=== PATIENT | female | born 1960 | race Caucasian/White ===

== ENCOUNTER 2017-04-19 08:28 | Emergency (ER) | payer MEDICAID ==
[~2017-04-19] VITALS: Ht 160 cm; Wt 52.2 kg
[~2017-04-19 08:28] MED LIST: ERGO1TAB10 PO
[2017-04-19] MEDS ORDERED: predniSONE 20 MG TABLET PO ONE (08:45)
[2017-04-19] MEDS ORDERED: KETOROLAC TROMETHAMINE 30 MG INJ IM ONE (08:45)
[2017-04-19] MEDS ORDERED: METOCLOPRAMIDE HCL 10 MG TABLET PO ONE (08:45)
[2017-04-19] MEDS ORDERED: KETOROLAC TROMETHAMINE 30 MG INJ ONE (08:56)
[2017-04-19] MEDS ORDERED: METOCLOPRAMIDE HCL 10 MG TABLET ONE (08:57)
[2017-04-19] MEDS ORDERED: predniSONE 20 MG TABLET ONE (08:57)
[2017-04-19 09:05] VITALS: BP 112/78
== END 2017-04-19 09:06 | disposition home or self-care (01) ==
LOC: ER 08:28
DX: G43.909 Migraine, unspecified, not intractable, without status migrainosus (principal); J06.9 Acute upper respiratory infection, unspecified; R09.82 Postnasal drip; K21.9 Gastro-esophageal reflux disease without esophagitis
CPT/HCPCS: 96372; 99283; A4663; J1885; J7512; J8597

== ENCOUNTER 2018-11-10 02:34 | Emergency (ER) | payer MEDICAID ==
[~2018-11-10] VITALS: Ht 160 cm; Wt 49.9 kg
[2018-11-10] MEDS ORDERED: KETOROLAC TROMETHAMINE 60 MG INJ IM ONE ×2 (03:00→03:24)
[2018-11-10] MEDS ORDERED: ONDANSETRON 4 MG/2 ML VIAL IM ONE (03:00)
--- NOTE | 2018-11-10 03:10 | NUR ---
pt stated she has a migraine headache and feels nauseated overall appearances fair no acute distress noted
[2018-11-10] MEDS ORDERED: ONDANSETRON 4 MG/2 ML VIAL ONE (03:24)
--- NOTE | 2018-11-10 03:27 | NUR ---
was medicated with toradol and zofran denies allergies medication teaching given with effect pt was discharge to home discharge instruction given enc pt not to drive stated she felt better
[2018-11-10 03:39] VITALS: BP 122/66
== END 2018-11-10 03:40 | disposition home or self-care (01) ==
LOC: ER 02:38
DX: G43.909 Migraine, unspecified, not intractable, without status migrainosus (principal); Z79.899 Other long term (current) drug therapy
CPT/HCPCS: 96372 ×2; 99283; J1885; J2405; A4663

== ENCOUNTER 2018-12-08 17:42 | Emergency (ER) | payer MEDICAID ==
[~2018-12-08] VITALS: Ht 157.5 cm; Wt 49.0 kg
--- NOTE | 2018-12-08 17:58 | NUR ---
Dr gonzalez at the bedside for MSE.
[2018-12-08] MEDS ORDERED: ASPIRIN 325 MG TABLET ONE (18:15)
[2018-12-08] MEDS ORDERED: ASPIRIN 325 MG TABLET PO ONE (18:15)
[2018-12-08] MEDS ORDERED: NITROGLYCERIN 0.4 MG/TAB BOTTLE SL ONE ×2 (18:15)
--- NOTE | 2018-12-08 18:16 | NUR ---
Per Dr Leonard goss, d/c 2nd [facility], Due to Pt's low BP.
[2018-12-08 18:26] LABS: BASOPHILS # (AUTO) 0.1 K/uL (0.0-8.0); BASOPHILS % (AUTO) 1.3 % (0.0-2.0); EOSINOPHILS # (AUTO) 0.1 K/uL (0.0-0.7); EOSINOPHILS % (AUTO) 1.4 % (0.0-7.0); HEMATOCRIT 37.7 % (31.2-41.9); HEMOGLOBIN 12.4 g/dL (10.9-14.3); LYMPHOCYTES # (AUTO) 2.5 K/uL (20.0-40.0); MEAN CORPUSCULAR HEMOGLOBIN 30.7 uug (24.7-32.8); MEAN CORPUSCULAR HGB CONC 33 g/dL (32.3-35.6); MEAN CORPUSCULAR VOLUME 93.1 fL (75.5-95.3); MONOCYTES # (AUTO) 0.6 K/uL (2.0-10.0); MONOCYTES % (AUTO) 8.1 % (0.0-11.0); NEUTROPHILS # (AUTO) 3.9 K/uL (1.8-8.9); NEUTROPHILS % (AUTO) 54.2 % (38.5-71.5); PLATELET COUNT (AUTO) 321 K/uL (179-408); RED BLOOD CELL COUNT(AUTO) 4.05 MIL/uL (3.63-4.92); WHITE BLOOD COUNT (AUTO) 7.2 K/uL (3.8-11.8)
[2018-12-08 18:37] LABS: CREATININE 0.9 mg/dL (0.6-1.3); POTASSIUM 3.9 mmol/L (3.5-5.1)
[2018-12-08 18:50] LABS: BILIRUBIN,DIRECT 0.1 mg/dL (0.0-0.2); BILIRUBIN,TOTAL 0.3 mg/dL (0.2-1.0); TOTAL PROTEIN, SERUM 7.4 g/dL (6.4-8.2)
--- NOTE | 2018-12-08 19:44 | NUR ---
Patient discharged to home in stable conditon. Written and verbal after care instructions given. Patient verbalizes understanding of instructions. Patient ambulated with stable gait.
[2018-12-08 19:46] VITALS: BP 106/76
== END 2018-12-08 19:47 | disposition home or self-care (01) ==
LOC: ER 17:42
DX: R07.2 Precordial pain (principal); G43.909 Migraine, unspecified, not intractable, without status migrainosus; Z79.899 Other long term (current) drug therapy
CPT/HCPCS: 36415; 70030-TC; 71045; 85025; 85730; 93005; A4663

== ENCOUNTER 2020-06-05 11:32 | Emergency (ER) | payer MEDICAID ==
[~2020-06-05] VITALS: Ht 165.1 cm; Wt 49.9 kg
--- NOTE | 2020-06-05 11:45 | NUR ---
Dr Valle at bedside for eval
--- NOTE | 2020-06-05 11:59 | NUR ---
DC, RX (INCLUDING ALL OXYCODONE PRECAUTIONS) GIVEN AND EXPLAINED TO PATIENT WHO STATES SHE UNDERSTANDS ALL INSTRUCTIONS
== END 2020-06-05 12:00 | disposition home or self-care (01) ==
LOC: ER 11:32
DX: K04.7 Periapical abscess without sinus (principal)
CPT/HCPCS: A4663

== ENCOUNTER 2020-07-09 19:25 | Emergency (ER) | payer MEDICAID ==
[~2020-07-09] VITALS: Ht 160 cm; Wt 54.4 kg
--- NOTE | 2020-07-09 19:40 | NUR ---
Patient refusing to let ERMD Dr. Valle assess rash on abdomen even with female nurse chapperone.
--- NOTE | 2020-07-09 19:50 | NUR ---
Patient discharged to home in stable condition. Written and verbal after care instructions given. Patient verbalizes understanding of instructions. Stressed follow up or return to ER for worsening s/s. Patient ambulated with steady gait.
[2020-07-09 19:52] VITALS: BP 118/78
== END 2020-07-09 19:52 | disposition home or self-care (01) ==
LOC: ER 19:25
DX: K08.89 Other specified disorders of teeth and supporting structures (principal); L01.00 Impetigo, unspecified; B37.2 Candidiasis of skin and nail; G43.909 Migraine, unspecified, not intractable, without status migrainosus
CPT/HCPCS: A4663

== ENCOUNTER 2020-07-13 10:57 | Emergency (ER) | payer MEDICAID ==
[~2020-07-13] VITALS: Ht 152.4 cm; Wt 59.9 kg
[2020-07-13] MEDS ORDERED: diphenhydrAMINE 50 MG CAPSULE PO ONE (11:30)
[2020-07-13] MEDS ORDERED: MALA59LO5 TP ×2 (11:30→11:35)
[2020-07-13] MEDS ORDERED: predniSONE 20 MG TABLET PO ONE (11:30)
[2020-07-13] MEDS ORDERED: predniSONE 50 MG TABLET ONE (11:32)
[2020-07-13] MEDS ORDERED: predniSONE 10 MG TABLET ONE (11:32)
[2020-07-13] MEDS ORDERED: diphenhydrAMINE 50 MG CAPSULE ONE (11:32)
[2020-07-13] MEDS ORDERED: DIPH25CA83 PO ×2 (11:36→11:37)
--- NOTE | 2020-07-13 11:58 | NUR ---
Patient discharged to home in stable condition. Written and verbal after care instructions given. Patient verbalizes understanding of instructions. Stressed follow up or return to ER for worsening s/s.
[2020-07-14] MEDS ORDERED: PERM60CR4 TP (14:51)
== END 2020-07-13 11:58 | disposition home or self-care (01) ==
LOC: ER 10:57
DX: R21 Rash and other nonspecific skin eruption (principal); K21.9 Gastro-esophageal reflux disease without esophagitis; G43.909 Migraine, unspecified, not intractable, without status migrainosus; F32.9 Major depressive disorder, single episode, unspecified; F41.9 Anxiety disorder, unspecified; Z79.899 Other long term (current) drug therapy
CPT/HCPCS: 99283; J7512 ×2; Q0163; A4663

== ENCOUNTER 2020-07-16 21:35 | Emergency (ER) | payer MEDICAID ==
[~2020-07-16] VITALS: Ht 162.6 cm; Wt 52.6 kg
[~2020-07-16 21:35] MED LIST changes: +DIPH25CA83 PO; +MALA59LO5 TP; +PERM60CR4 TP
--- NOTE | 2020-07-16 21:49 | NUR ---
Patient arrived at the ER with c/o generalized itchy, burning and dry rash.
--- NOTE | 2020-07-16 21:51 | NUR ---
Dr. Woodson at bedside for MSE.
--- NOTE | 2020-07-16 22:09 | NUR ---
Dr. Woodson examined patient skin with this nurse present for the entire encounter.
[2020-07-16] MEDS ORDERED: DIPH25CA83 PO (22:13)
[2020-07-16] MEDS ORDERED: DEXAMETHASONE SOD PHOSPHATE 4 MG INJ IM ONE (22:15)
[2020-07-16] MEDS ORDERED: diphenhydrAMINE 50 MG/1 ML VIAL IM ONE (22:15)
[2020-07-16] MEDS ORDERED: DEXAMETHASONE SOD PHOSPHATE 4 MG INJ ONE (22:18)
[2020-07-16] MEDS ORDERED: diphenhydrAMINE 50 MG/1 ML VIAL ONE (22:19)
[2020-07-16 22:32] VITALS: BP 125/79
--- NOTE | 2020-07-16 22:32 | NUR ---
Patient discharged to home in stable condition. Written and verbal after care instructions given. Patient verbalizes understanding of instructions. Stressed follow up or return to ER for worsening s/s. Pt ambulated out of the ER with steady gait. All belongings with pt.
== END 2020-07-16 22:33 | disposition home or self-care (01) ==
LOC: ER 21:35
DX: R21 Rash and other nonspecific skin eruption (principal); F41.9 Anxiety disorder, unspecified; F32.9 Major depressive disorder, single episode, unspecified; Z86.69 Personal history of other diseases of the nervous system and sense organs
CPT/HCPCS: 96372; 99283; J1200; A4663; J1100

== ENCOUNTER 2020-07-25 22:27 | Emergency (ER) | payer MEDICAID ==
[~2020-07-25] VITALS: Ht 157.5 cm; Wt 49.9 kg
--- NOTE | 2020-07-25 22:36 | NUR ---
MD DAHL in room to do MSE.
[2020-07-25] MEDS ORDERED: PERM60CR4 TP (22:42)
--- NOTE | 2020-07-25 22:55 | NUR ---
Patient c/o of discomfort around chest/abdomen area. MD Valle notifed. EKG done.
[2020-07-25] MEDS ORDERED: MAG HYDROX/AL HYDROX/SIMETH 30 ML LIQUID UDC PO ONE (23:00)
[2020-07-25] MEDS ORDERED: PANTOPRAZOLE SODIUM 40 MG TABLET.DR PO ONE ×2 (23:00→23:15)
[2020-07-25] MEDS ORDERED: DICYCLOMINE HCL LIQ 10 MG/5 ML UDC PO ONE (23:00)
[2020-07-25] MEDS ORDERED: MAG HYDROX/AL HYDROX/SIMETH 30 ML LIQUID UDC ONE (23:14)
[2020-07-25] MEDS ORDERED: DICYCLOMINE HCL LIQ 10 MG/5 ML UDC ONE (23:15)
[2020-07-25 23:20] VITALS: BP 125/75
--- NOTE | 2020-07-25 23:20 | NUR ---
Patient discharged to home in stable condition. Written and verbal after care instructions given. Patient verbalizes understanding of instructions. Stressed follow up or return to ER for worsening s/s. Patient ambulates without difficulty, Rx given, left with all belongings.
== END 2020-07-25 23:20 | disposition home or self-care (01) ==
LOC: ER 22:31
DX: B86 Scabies (principal)
CPT/HCPCS: 93005; A4663

== ENCOUNTER 2020-11-24 11:29 | Emergency (ER) | payer MEDICAID, OTHER ==
[~2020-11-24] VITALS: Ht 162.6 cm; Wt 59.9 kg
[2020-11-24] MEDS ORDERED: TRIA15CR2 TP (12:23)
[2020-11-24] MEDS ORDERED: HYDR-501 PO (12:23)
--- NOTE | 2020-11-24 12:29 | NUR ---
I received this patient for discharge. Patient discharged to home in stable condition with brisk steady gait. Written and verbal after care instructions given to patient. Patient verbalized understanding & compliance of instructions. Stressed follow up with her [employer] and primary doctor or return to ER for worsening s/s.
== END 2020-11-24 12:31 | disposition home or self-care (01) ==
LOC: ER 11:29
DX: L29.9 Pruritus, unspecified (principal); D22.5 Melanocytic nevi of trunk
CPT/HCPCS: A4663

== ENCOUNTER 2022-04-01 12:39 | Emergency (ER) | payer OTHER ==
[~2022-04-01] VITALS: Ht 157.5 cm; Wt 52.2 kg
[~2022-04-01 12:39] MED LIST changes: +HYDR-501 PO; +TRIA15CR2 TP
[2022-04-01] MEDS ORDERED: KETOROLAC TROMETHAMINE 15 MG INJ ONE (13:35)
[2022-04-01] MEDS ORDERED: diphenhydrAMINE 50 MG/1 ML VIAL ONE (13:35)
[2022-04-01] MEDS ORDERED: METOCLOPRAMIDE HCL 10 MG/2 ML VIAL ONE (13:35)
[2022-04-01] MEDS: diphenhydrAMINE 50 MG/1 ML VIAL IV ONE (14:35)
[2022-04-01] MEDS: IV NS 1000 ML 1,000 ML IV ONE (14:38)
[2022-04-01] MEDS: METOCLOPRAMIDE HCL 10 MG/2 ML VIAL IV ONE (14:38)
[2022-04-01] MEDS: KETOROLAC TROMETHAMINE 15 MG INJ IVP ONE (14:39)
[2022-04-01 15:05] LABS: *BILIRUBIN,URIN NEGATIVE (NEGATIVE); *BLOOD, URINE 1+ (NEGATIVE); *CLARITY,URINE CLEAR (CLEAR); *COLOR,URINE YELLOW (YELLOW); *KETONES,URINE NEGATIVE (NEGATIVE); *UROBILINOGEN,URINE 0.2 E.U./dl (NORMAL); LEUKOCYTE ESTERASE ,URINE NEGATIVE (NEGATIVE); NITRITE, URINE NEGATIVE (NEGATIVE); PH,URINE 5.5 (5.0-8.0); UGLUCOSE NEGATIVE (NEGATIVE)
[2022-04-01 15:17] LABS: BACTERIA,URINE NONE SEEN /HPF (NONE SEEN); RBC,URINE 0-3 /HPF (0-3); SQUAMOUS EPITHELIAL CELL,UR FEW /HPF (NONE SEEN); WBC,URINE 0-3 /HPF (0-3)
--- NOTE | 2022-04-01 16:19 | NUR ---
Pt arrived with c/o recurring headaches. Pt denies dizziness, n/v, episode of syncope. PERRLA, able to follow instructions, can be easily arouse by name, aox4. Seen by Dr. Shen for MSE.
[2022-04-01 16:23] VITALS: BP 129/71
== END 2022-04-01 15:45 | disposition home or self-care (01) ==
LOC: ER 12:41
DX: G44.209 Tension-type headache, unspecified, not intractable (principal); F43.9 Reaction to severe stress, unspecified
CPT/HCPCS: 93005; A4663; J1200; J1885; J2765; J7040

== ENCOUNTER 2022-04-12 15:07 | Emergency (ER) | payer OTHER ==
[~2022-04-12] VITALS: Ht 157.5 cm; Wt 52.2 kg
[2022-04-12] MEDS ORDERED: ACETAMINOPHEN ES 500 MG TABLET PO ONE (15:30)
[2022-04-12] MEDS ORDERED: diphenhydrAMINE 50 MG/1 ML VIAL IV ONE (15:30)
[2022-04-12] MEDS ORDERED: KETOROLAC TROMETHAMINE 15 MG INJ IVP ONE (15:30)
[2022-04-12] MEDS ORDERED: IV NORMAL SALINE 1000 ML BAG IV ONE (15:30)
[2022-04-12] MEDS ORDERED: METOCLOPRAMIDE HCL 10 MG/2 ML VIAL IV ONE (15:30)
[2022-04-12] MEDS ORDERED: ACETAMINOPHEN ES 500 MG TABLET ONE (15:31)
[2022-04-12] MEDS ORDERED: diphenhydrAMINE 50 MG/1 ML VIAL ONE (15:31)
[2022-04-12] MEDS ORDERED: METOCLOPRAMIDE HCL 10 MG/2 ML VIAL ONE (15:32)
[2022-04-12] MEDS ORDERED: KETOROLAC TROMETHAMINE 15 MG INJ ONE (15:32)
[2022-04-12 15:58] LABS: HEMATOCRIT 35.4 % (31.2-41.9); MEAN CORPUSCULAR HEMOGLOBIN 31.6 uug (24.7-32.8); MEAN CORPUSCULAR VOLUME 92.6 fL (75.5-95.3); PLATELET COUNT (AUTO) 334 K/uL (179-408)
[2022-04-12 16:06] LABS: CREATININE 0.5 mg/dL (0.6-1.3); POTASSIUM 3.5 mmol/L (3.5-5.1)
[2022-04-12 16:24] LABS: *BILIRUBIN,URIN NEGATIVE (NEGATIVE); *BLOOD, URINE 2+ (NEGATIVE); *CLARITY,URINE SLIGHTLY CLOUDY (CLEAR); *COLOR,URINE YELLOW (YELLOW); *KETONES,URINE NEGATIVE (NEGATIVE); *UROBILINOGEN,URINE 0.2 E.U./dl (NORMAL); LEUKOCYTE ESTERASE ,URINE NEGATIVE (NEGATIVE); NITRITE, URINE NEGATIVE (NEGATIVE); PH,URINE 7.5 (5.0-8.0); UGLUCOSE NEGATIVE (NEGATIVE)
[2022-04-12] MEDS ORDERED: IBUP-1955 PO (16:26)
[2022-04-12 18:12] VITALS: BP 100/81
[2022-04-12 18:18] LABS: BACTERIA,URINE NONE SEEN /HPF (NONE SEEN); SQUAMOUS EPITHELIAL CELL,UR FEW /HPF (NONE SEEN); URINE AMORPHOUS PHOSPHATES MODERATE /HPF; WBC,URINE 0-3 /HPF (0-3)
== END 2022-04-12 18:14 | disposition home or self-care (01) ==
LOC: ER 15:07
DX: G44.209 Tension-type headache, unspecified, not intractable (principal); F43.9 Reaction to severe stress, unspecified; R31.9 Hematuria, unspecified; F41.9 Anxiety disorder, unspecified; R42 Dizziness and giddiness
CPT/HCPCS: 99285; 96374; 70450; 96375; 96361; 80048; 81001; 82962; 84443; 85025; 36415; 93005; J1200; J1885; J2765; J7040; A9150

== ENCOUNTER 2024-09-09 19:02 | Emergency (ER) | payer OTHER ==
[~2024-09-09] VITALS: Ht 165.1 cm; Wt 49.9 kg
[~2024-09-09 19:02] MED LIST changes: +IBUP-1955 PO
[2024-09-09] MEDS ORDERED: AMOX500T2 PO (20:33)
[2024-09-09] MEDS ORDERED: BENZ-13 PO (20:33)
[2024-09-09] MEDS ORDERED: NIRM1TAB PO (20:46)
[2024-09-09 20:56] VITALS: BP 112/57; TEMP 98.5; O2SAT 99
== END 2024-09-09 20:56 | disposition home or self-care (01) ==
LOC: ER 19:19
DX: U07.1 COVID-19 (principal); R05.9 Cough, unspecified; F41.9 Anxiety disorder, unspecified; F32.A Depression, unspecified; G43.909 Migraine, unspecified, not intractable, without status migrainosus; Z79.899 Other long term (current) drug therapy; Z60.2 Problems related to living alone
CPT/HCPCS: A4606; A4663

== ENCOUNTER 2024-10-21 07:23 | Emergency (ER) | payer OTHER ==
[~2024-10-21] VITALS: Ht 160 cm; Wt 49.9 kg
[~2024-10-21 07:23] MED LIST changes: +AMOX500T2 PO; +BENZ-13 PO; +NIRM1TAB PO
[2024-10-21 07:51] LABS: BASOPHILS # (AUTO) 0.1 K/UL (0.0-0.2); EOSINOPHILS # (AUTO) 0.1 K/uL (0.0-0.7); EOSINOPHILS % (AUTO) 1.7 % (0.0-7.0); HEMATOCRIT 38.7 % (31.2-41.9); HEMOGLOBIN 13.1 g/dL (10.9-14.3); LYMPHOCYTES # (AUTO) 0.9 K/uL (0.8-4.8); LYMPHOCYTES % (AUTO) 14.9 % (20.5-51.5); MEAN CORPUSCULAR HEMOGLOBIN 31.7 uug (24.7-32.8); MEAN CORPUSCULAR HGB CONC 34 g/dL (32.3-35.6); MEAN CORPUSCULAR VOLUME 93.9 fL (75.5-95.3); MONOCYTES # (AUTO) 0.6 K/uL (0.1-1.30); MONOCYTES % (AUTO) 10.3 % (0.0-11.0); NEUTROPHILS # (AUTO) 4.1 K/uL (1.8-8.9); NEUTROPHILS % (AUTO) 72.1 % (38.5-71.5); PLATELET COUNT (AUTO) 303 K/uL (179-408); RED BLOOD CELL COUNT(AUTO) 4.13 MIL/uL (3.63-4.92); RED CELL DISTRIBUTION WIDTH 13.1 % (12.3-17.7); WHITE BLOOD COUNT (AUTO) 5.7 K/uL (3.8-11.8)
[2024-10-21 07:59] LABS: CALCIUM 9.6 mg/dL (8.5-10.1); CARBON DIOXIDE 30 mmol/L (21-32); CHLORIDE 104 mmol/L (98-107); CREATININE 0.5 mg/dL (0.6-1.3); GLUCOSE 72 mg/dL (74-106); POTASSIUM 3.7 mmol/L (3.5-5.1); SODIUM SERUM 140 mmol/L (136-145); UREA NITROGEN, BLOOD 8 mg/dL (7-18)
[2024-10-21] MEDS ORDERED: BENZ-13 PO (08:08)
[2024-10-21 08:23] VITALS: BP 101/62; O2SAT 97
== END 2024-10-21 08:17 | disposition home or self-care (01) ==
LOC: ER 07:23
DX: J06.9 Acute upper respiratory infection, unspecified (principal); R07.89 Other chest pain; F41.9 Anxiety disorder, unspecified; R05.9 Cough, unspecified; R09.81 Nasal congestion; G43.909 Migraine, unspecified, not intractable, without status migrainosus; Z87.2 Personal history of diseases of the skin and subcutaneous tissue; Z60.2 Problems related to living alone
CPT/HCPCS: 36415; 71045; 84484; 85025; A4606; A4663